=== PATIENT | female | born 2000 | race Caucasian/White ===

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

== ENCOUNTER 2023-12-13 11:47 | Emergency (ER) | payer MEDICAID, OTHER ==
[~2023-12-13] VITALS: Ht 170.2 cm; Wt 101.3 kg
[~2023-12-13 11:47] MED LIST: ALBU108A5 IN; AZIT1POW12 PO
[2023-12-13 12:00] VITALS: BP 130/80; PULSE 111
[2023-12-13] MEDS: DexAMETHasone SOD PHOS 10MG/1ML VIAL INJ IM ONE (13:09)
[2023-12-13] MEDS: LORazepam 0.5 MG TAB PO ONE (13:13)
[2023-12-13 13:24] VITALS: RESP 16; O2SAT 98
[2023-12-13] MEDS: IPRATROPIUM BROM 0.5 MG/2.5ML INH SOL NEB ONE (13:24)
[2023-12-13] MEDS ORDERED: PRED20TA2 PO (13:40)
[2023-12-13] MEDS ORDERED: AZITTAB PO (13:40)
[2023-12-13] MEDS ORDERED: HYDR25CA PO (13:40)
[2023-12-13] MEDS ORDERED: BENZ200C64 PO (13:40)
[2023-12-13] MEDS ORDERED: ALBUAER3 IN (13:40)
== END 2023-12-13 13:52 | disposition home or self-care (01) ==
LOC: ER 11:47
DX: J20.9 Acute bronchitis, unspecified (principal); F41.9 Anxiety disorder, unspecified; R07.89 Other chest pain; R06.02 Shortness of breath
CPT/HCPCS: 71045; 94640; 96372; 99283; J1100; J7644